=== PATIENT | female | born 1940 | race Caucasian/White ===

== ENCOUNTER 2023-10-22 10:48 | Emergency (ER) | payer MEDICARE, SELFPAY ==
[2023-10-22] VITALS (12 sets, daily range): BP systolic 140–198; BP diastolic 71–90; PULSE 50–68; RESP 7–19; TEMP 36.6; O2SAT 94–97; BMI 22.1
--- NOTE | 2023-10-22 10:55 | EKG_ITS ---
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
--- NOTE | 2023-10-22 11:00 | DI.RAD.S_ITS ---
PROCEDURE: XR CHEST 1V INDICATIONS: chest pain TECHNIQUE: One view of the chest was acquired. COMPARISON: None. FINDINGS: Surgical changes and devices: None. Lungs and pleura: Lungs are clear. No pleural effusions or pneumothorax. Mediastinum: Mediastinal contours appear normal. Heart size is normal. Bones and chest wall: No suspicious bony lesions. Overlying soft tissues appear unremarkable. IMPRESSION: No acute cardiopulmonary abnormality is seen. Dictated by: Patrice Florez M.D. on 10/22/2023 at 11:16 Approved by: Patrice Florez M.D. on 10/22/2023 at 11:16
--- NOTE | 2023-10-22 11:00 | PC.NURSE ---
Provider consulted and gave verbal order for no aspirin.
--- NOTE | 2023-10-22 11:20 | ED_ITS ---
HPI - Dizziness General Chief Complaint: Dizziness Stated Complaint: Dizzy Time Seen by Provider: 10/22/23 11:20 Source: patient and family Mode of arrival: EMS Limitations: no limitations History of Present Illness HPI Narrative: 83-year-old female history of depression, hypothyroidism, dementia, cardiac arrhythmia recently started on anticoagulation who presents with complaint of dizziness. Patient has been drove up to the area from [place] last night, spent the night in [place] patient went for a walk this morning and afterwards had diarrhea for about an hour on and off. Afterwards she developed some dizziness which she trouble describing. She states it is worse with movement of her head. She denies headache, no sudden vision changes, no numbness tingling or weakness. No difficulty with balance or gait. She would some nausea early but no vomiting. She did have some diarrhea like stools 2 or 3 times over about an hour prior to the episode occurring. No bright red stools or melanotic stools. No abdominal, back or flank pain. No dysuria urgency or frequency or incontinence. Denies any new numbness tingling or weakness of extremities patient states she is feeling improved but still slightly present. Hurt her has been notes she was admitted to [facility] recently was started on medication to help keep her heart rate down and anticoagulants they are unsure the name of both these medications or her exact diagnosis but sounds like possibly atrial fibrillation. She has a history of depression hypothyroidism has had her thyroid out. Has taken a statin in the past. No reports of hypertension or diabetes. Has not ever had any surgical interventions besides or thyroid, no prior heart catheterization or cardiac interventions. No known drug allergies. No tobacco, very rare alcohol, no recreational drugs. Patient lives in [place], primary care is through [facility]. She is accompanied by her who augments her history. He does not appreciate any changes to mentation today. Related Data Previous Rx's Medication Instructions Recorded cephalexin 500 mg capsule 500 mg PO TID 5 days #15 caps 10/22/23 Allergies Allergy/AdvReac Type Severity Reaction Status Date / Time No Known Drug Allergies Allergy Verified 10/22/23 14:30 Review of Systems Review of Systems ROS Unobtainable: All systems reviewed & are unremarkable except as noted in HPI and below Patient History Social History Smoking Status: Never smoker Smoking Status: Never smoker Substance Use Type: does not use Exam Narrative Exam Narrative: GEN: well nourished, well appearing female, alert and oriented x 3, patient appears to be in mild distress. HEENT: Atraumatic, pupils are equal round reactive to light, extraocular movements are intact, nares are clear, no nystagmus, TMs are clear with no fluid, there is no conjunctival pallor. Throat is clear without any exudates, erythema, tonsillar enlargement or uvular deviation HEART: Regular rate and rhythm without murmur, clicks, rubs. Pulses are equal in upper and lower extremities LUNGS:Lungs clear to auscultation, no wheezes, rales, crackles, chest moves symmetrically ABD:bowel sounds normal, soft, non-tender, no guarding, rebound, rigidity, no masses noted, no hepatosplenomegaly :No CVA tenderness MSCL: Non-tender, no muscle atrophy, muscles strength 5/5 upper and lower extremities, full range of motion. NEURO:CN 2-12 intact, sensation normal, finger nose finger test normal, heel nicholas test normal, romberg normal SKIN: No rash, erythema or other skin changes noted. Initial Vital Signs Initial Vital Signs: Vital Signs Temperature 97.8 F 10/22/23 10:53 Pulse Rate 51 L 10/22/23 10:53 Respiratory Rate 18 10/22/23 10:53 Blood Pressure 140/78 10/22/23 10:53 Pulse Oximetry 97 10/22/23 10:53 Oxygen Delivery Method Room Air 10/22/23 10:53 Scores NIH Stroke Scale Level of Conciousness: Alert, keenly responsive Ask month/age: Answers both questions correctly. Open/close eyes, close hand: Performs both tasks correctly Best gaze horizontal: Normal Visual richardson: No visual loss Facial palsy: Normal symetrical movement Left arm drift: No drift for full 10 sec Right arm drift: No drift for full 10 sec Left leg drift: No drift for full 5 sec Right leg drift: No drift for full 5 sec Limb ataxia: Absent Sensory on face/arms/legs: Normal, no sensory loss Best language: No aphasia, normal Dysarthria: Normal Extinction or inattention: No abnormality Total NIH Stroke scale score: 0 Course Orders Ordered: Discontinued Medications Cephalexin HCl (Cephalexin 250 Mg Capsule) 500 mg PO NOW ONE Stop: 10/22/23 14:19 Last Admin: 10/22/23 14:31 Dose: 500 mg Documented By: MARGRET Meclizine HCl (Meclizine Hcl 12.5 Mg Tablet) 25 mg PO NOW ONE Stop: 10/22/23 11:43 Last Admin: 10/22/23 11:50 Dose: 25 mg Documented By: IRMA Vital Signs Vital signs: Vital Signs - 8 hr 10/22/23 10:53 10/22/23 10:53 10/22/23 10:54 Temperature 97.8 F Pulse Rate 51 L 51 L 50 L Respiratory Rate 18 Blood Pressure 140/78 Pulse Oximetry 97 96 Oxygen Delivery Method Room Air 10/22/23 10:54 10/22/23 11:00 10/22/23 11:30 Temperature Pulse Rate 50 L 54 L Respiratory Rate 16 Blood Pressure 179/77 H Pulse Oximetry 97 96 Oxygen Delivery Method 10/22/23 11:30 10/22/23 12:30 10/22/23 12:47 Temperature Pulse Rate 57 L 58 L Respiratory Rate 15 14 Blood Pressure 166/73 H Pulse Oximetry 94 96 Oxygen Delivery Method 10/22/23 12:47 10/22/23 13:01 10/22/23 13:32 Temperature Pulse Rate 60 68 Respiratory Rate 19 15 Blood Pressure 153/71 H Pulse Oximetry 94 95 Oxygen Delivery Method 10/22/23 13:32 10/22/23 14:00 10/22/23 14:00 Temperature Pulse Rate 58 L Respiratory Rate 16 Blood Pressure 191/89 H 198/90 H Pulse Oximetry 95 Oxygen Delivery Method MDM - Dizziness Lab Data 10/22/23 11:07 10/22/23 11:07 Labs: Lab Results 10/22/23 10/22/23 Range/Units 11:07 13:35 WBC 9.2 (4.5-11.0) X10^3/uL RBC 3.76 L (4.0-5.2) X10^6/uL Hgb 11.2 L (12.0-16.0) g/dL Hct 34.1 L (36-46) % MCV 90.5 (80-100) fL MCH 29.7 (26-34) PG MCHC 32.8 (30-36) % RDW 15.7 H (11.6-14.8) % Plt Count 244 (150-400) X10^3/uL Neut % (Auto) 80.2 H (50-75) % Lymph % (Auto) 12.7 L (25-40) % [place] % (Auto) 5.5 (3-14) % Eos % (Auto) 0.7 L (2-4) % Baso % (Auto) 0.9 (0-2) % Neut # (Auto) 7300 H (7260-1485) /uL Lymph # (Auto) 1200 (2403-9965) /uL [place] # (Auto) 500 (0-900) /uL Eos # (Auto) 100 (0-450) /uL Baso # (Auto) 100 (0-100) /uL PT 11.5 (9.4-12.5) SECONDS INR 1.0 (0.9-1.3) APTT 31 (25.1-36.5) SECONDS Sodium 138 (137-145) mmol/L Potassium 4.1 (3.4-5.1) mmol/L Chloride 104 (98-107) mmol/L Carbon Dioxide 29 (22-32) mmol/L BUN 19 H (7-17) mg/dL Creatinine 1.00 (0.52-1.04) mg/dL Estimated GFR 57 L (>60) mL/min BUN/Creatinine Ratio 19.0 (6-22) Glucose 126 H (80-110) mg/dL Calcium 8.7 (8.4-10.2) mg/dL Magnesium 2.0 (1.6-2.3) mg/dL Total Bilirubin 0.8 (0.2-1.3) mg/dL AST 30 (14-36) IU/L ALT 19 (<35) IU/L Alkaline Phosphatase 74 (38-126) U/L Total Creatine Kinase 65 (30-135) U/L Troponin I < 0.012 (0.01-0.034) ng/mL NT-Pro-B Natriuret Pep 2050 H (<450) pg/mL Total Protein 7.1 (6.3-8.2) g/dL Albumin 4.0 (3.5-5.0) g/dL Globulin 3.1 (1.7-4.1) g/dL Albumin/Globulin Ratio 1.3 (1.0-2.8) Lipase 123 (23-300) U/L Urine Color Yellow Urine Appearance Sl cloudy Urine pH 6.5 (4.5-8.0) Ur Specific [place] 1.010 (1.000-1.035) Urine Protein Negative (Negative) Urine Glucose (UA) Negative (Negative) g/dL Urine Ketones Trace H (NEGATIVE) Urine Occult Blood 1+ H (Negative) Urine Nitrate Negative (Negative) Urine Bilirubin Negative (NEGATIVE) Urine Urobilinogen 0.2 (0.2) E.U./dL Ur Leukocyte Esterase 2+ H (NEGATIVE) Urine RBC 0-1/hpf (0-5/HPF) Urine WBC 5-10/hpf H (0-5/HPF) Ur Squamous Epith Cells 1-5 /hpf (0-5/HPF) Ur Transition Epith Cell 0-1/hpf (0-5/HPF) Urine Bacteria Few (2-10) H (None) Ur Culture Indicated? Specimen cultured Vol Urine Centrifuged Low vol <10ml (spun) A Imaging Data Chest x-ray: Radiologist's Impression: [place] [address] XRay Report Signed Patient: Coreen Baird MR#: [id number] : 1940 Acct:[id number] Age/Sex: 83 / F Date of Service: 10/22/23 Loc: ED Accession Number: [id number] Procedure: XR chest 1V Ordering Provider: Kim Farr D.O. PROCEDURE: XR CHEST 1V INDICATIONS: chest pain TECHNIQUE: One view of the chest was acquired. COMPARISON: None. FINDINGS: Surgical changes and devices: None. Lungs and pleura: Lungs are clear. No pleural effusions or pneumothorax. Mediastinum: Mediastinal contours appear normal. Heart size is normal. Bones and chest wall: No suspicious bony lesions. Overlying soft tissues appear unremarkable. IMPRESSION: No acute cardiopulmonary abnormality is seen. Dictated by: Patrice Florez M.D. on 10/22/2023 at 11:16 Approved by: Patrice Florez M.D. on 10/22/2023 at 11:16 ECG Data Attestation: I personally reviewed and interpreted this ECG as follows: Prior ECG tracings: not available for review Interpretation: Sinus [place] rate of 51 NC 158 QRS is 78 QTC of 451, no acute ST elevation depression noted. No priors for comparison. MDM Narrative Medical decision making narrative: 83-year-old female describing dizziness, maybe vertigo, patient has little bit difficulty giving history and exact symptoms but no other acute neurologic changes appreciated fairly abrupt onset but did occur after an episode of diarrhea 2 or 3 times the hour prior. Patient is bradycardic but no hypotension, afebrile. She is otherwise well-appearing, NIH is 0. Head CT shows no acute change. CT angio shows no significant intracranial arterial abnormality proximate 70% stenosis left proximal ICA right vertebral artery is dominant left vertebral artery is small right vertebral artery forms basilar, left vertebral artery terminates in the left PICA. Large left thyroid nodule recommended not urgent dedicated thyroid ultrasound for follow-up. Chest x-ray shows no acute change Labs, white count of 9.2 hemoglobin 11.2 platelets of 244. INR is 1, sodium is 138 potassium 4.1 chloride 104 CO2 of 29 BUN 19 creatinine 1, glucose is 126 calcium is 8.7 Mag is 2, LFTs are negative, troponins less than 0.012 BNP is 2050 no priors for comparison. EKG shows sinus bradycardia Urine shows trace ketones 1+ blood, 2+ leuks, 1 red cell 5-10 white cells 1-5 squamous few bacteria was sent for culture. Seems most consistent with UTI. Patient was given meclizine. Recheck reviewed findings with the patient's family has been notes that she had what sounds like a CT angio in the last several months while having her dementia workup. They are unsure if there was any stenosis. She has been on a statin also has a little bit of a UTI symptoms could be consistent with this as well. Discussed risks versus benefits of obtaining MR patient is ambulating in the department with no other acute changes or symptoms have resolved. Family defers MR. Discussed need for follow up regarding her CT angio, we will start oral antibiotic. Discharge Plan Departure Patient Disposition: Home Clinical Impression: Dizziness, UTI (urinary tract infection) Activity Restrictions/Additional Instructions: Your workup today did show possible UTI, urine cultures pending and if it shows resistance to antibiotics you would be contacted to change your prescription. Culture takes proximally 48-72 hours to result if you are on the appropriate antibiotics you will not be contacted. We did discuss vertigo as being possiblyone1 of the sources of your symptoms today, your non-con head CT was negative but CT head and neck angio does show some blockage of the left proximal ICA, follow up with your physician regarding this is they may wish to make sure you are taking a statin daily or adjust your medications. Sometimes they will discuss interventions if necessary. It is also noted that you have a large left thyroid lobe nodule, talk with your physician if they are unaware of this you may need to follow up with a thyroid ultrasound. Take oral antibiotics until completed, take 1 tablet 3 times daily or every 8 hours x5 days. Prescription was sent to [facility] pharmacy [address] [place] [address] in [place]. Please return for fevers, new dizziness or passing out, vertigo or room spinning, persistent vomiting, black or bloody stools, new abdominal back or flank pain, difficulty with urination, new numbness tingling or weakness or other new or concerning changes. Prescriptions: New cephalexin 500 mg capsule 500 mg PO TID 5 Days Qty: 15 0RF Stand Alone Forms: Patient Portal/API
[2023-10-22 11:22] LABS: Prothrombin Time 11.5 SECONDS (9.4-12.5)
[2023-10-22 11:24] LABS: Add Manual Diff / Slide Review NO; Basophils Absolute Auto 100 /uL (0-100); Basophils Percent Auto 0.9 % (0-2); Eosinophils Absolute Auto 100 /uL (0-450); Eosinophils Percent Auto 0.7 % (2-4); Hematocrit 34.1 % (36-46); Hemoglobin 11.2 g/dL (12.0-16.0); Lymphocytes Absolute Auto 1200 /uL (1100-4500); Lymphocytes Percent Auto 12.7 % (25-40); Mean Corpuscular HGB Conc 32.8 % (30-36); Mean Corpuscular Hemoglobin 29.7 PG (26-34); Mean Corpuscular Volume 90.5 fL (80-100); Monocytes Absolute Auto 500 /uL (0-900); Monocytes Percent Auto 5.5 % (3-14); Neutrophils Absolute Auto 7300 /uL (1500-7000); Neutrophils Percent Auto 80.2 % (50-75); PTT Partial Thromboplastin Tim 31 SECONDS (25.1-36.5); Platelet Count 244 X10^3/uL (150-400); Red Blood Cell Count 3.76 X10^6/uL (4.0-5.2); Red Cell Distribution Width 15.7 % (11.6-14.8); White Blood Cell Count 9.2 X10^3/uL (4.5-11.0)
[2023-10-22 11:27] LABS: Alanine Aminotransferase 19 IU/L (<35); Albumin Globulin Ratio 1.3 (1.0-2.8); Alkaline Phosphatase 74 U/L (38-126); Aspartate Aminotransferase 30 IU/L (14-36); Bilirubin Total 0.8 mg/dL (0.2-1.3); Blood Urea Nitrogen 19 mg/dL (7-17); Calcium 8.7 mg/dL (8.4-10.2); Carbon Dioxide 29 mmol/L (22-32); Chloride 104 mmol/L (98-107); Creatine Kinase 65 U/L (30-135); Estimated Glomerular Filt Rate 57 mL/min (>60); Globulin 3.1 g/dL (1.7-4.1); Glucose 126 mg/dL (80-110); HEMOLYSIS < 15 (0-50); Lipase 123 U/L (23-300); Potassium 4.1 mmol/L (3.4-5.1); Sodium 138 mmol/L (137-145); Total Protein 7.1 g/dL (6.3-8.2)
[2023-10-22 11:39] LABS: NT-proBNP (BNP-Adult 18+) 2050 pg/mL (<450); Troponin I < 0.012 ng/mL (0.01-0.034)
--- NOTE | 2023-10-22 11:41 | DI.CT.S_ITS ---
PROCEDURE: CT ANGIO HEAD AND NECK INDICATIONS: vertigo/ TECHNIQUE: After the administration of intravenous contrast, 1 mm thick sections acquired from the aortic arch through the [place] of [place]. 3-dimensional lohmrxf-wkquvzqob-wbbsoqnrkg (MIP) and/or volume rendering reformats were acquired of the central intracranial vasculature and neck separately. For radiation dose reduction, the following was used: automated exposure control, adjustment of mA and/or kV according to patient size. COMPARISON: None. FINDINGS: Image quality: Diagnostic. BRAIN: Please refer to same day CT of the head. HEAD CT ANGIOGRAPHY: Anterior circulation: Intracranial internal carotid arteries are normal in size and flow with atherosclerotic calcifications. The flow within the paired anterior cerebral arteries is normal and symmetric. The flow within the middle cerebral arteries is normal and symmetric. The anterior communicating artery is seen. No aneurysms are seen. Posterior circulation: Visualized portions of the vertebral arteries demonstrate normal caliber, and join to form a normal appearing basilar artery. Flow within the posterior cerebral arteries is normal and symmetric. No aneurysms are seen. NECK CT ANGIOGRAPHY: Carotid system: The great vessels demonstrate a conventional anatomy as they arise from the aortic arch. The origins of the common carotid arteries appear patent. The common carotid arteries demonstrate normal caliber and courses. The bifurcation regions demonstrate atherosclerotic calcifications with approximately 70 percent stenosis on the left and no significant stenosis on the right of the proximal ICA. The internal carotid arteries otherwise demonstrate normal calibers and courses. Posterior circulation: The origins of the vertebral arteries both appear widely patent. The more superior extracranial portions of both vertebral arteries also demonstrate normal courses and calibers. Right vertebral artery forms the basilar artery. Left vertebral artery terminates into the PICA.. Soft tissues: Visualized neck soft tissues demonstrate no suspicious abnormalities. Large left thyroid lobe with nodules, measuring up to 3.2 centimeters. Bones: No suspicious bony lesions. Visualized cervical spine appears normally aligned. IMPRESSION: No significant intracranial arterial abnormality is seen. 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 Right vertebral artery is dominant, left vertebral artery is small. Right vertebral artery forms the basilar, left vertebral artery terminates into the left PICA Large left thyroid lobe nodules, recommend nonurgent dedicated thyroid ultrasound for further evaluation. Any quantitative measurements of stenosis were performed using NASCET criteria. Dictated by: Patrice Florez M.D. on 10/22/2023 at 12:53 Approved by: Patrice Florez M.D. on 10/22/2023 at 12:58
--- NOTE | 2023-10-22 11:41 | DI.CT.S_ITS ---
PROCEDURE: CT HEAD/BRAIN WO CON INDICATIONS: vertigo/ TECHNIQUE: Noncontrast 4.5 mm thick angled axial sections acquired from the foramen magnum to the vertex, with coronal and sagittal reformats. For radiation dose reduction, the following was used: automated exposure control, adjustment of mA and/or kV according to patient size. COMPARISON: None. FINDINGS: Image quality: Diagnostic. CSF spaces: Basal cisterns are patent. No extra-axial fluid collections. The ventricles are symmetric in size and shape. Brain: No intracranial bleeds or masses. There is cerebral volume loss for age, with resultant ventricular and sulcal prominence. There are periventricular and deep white matter chronic small vessel ischemic changes. There is intracranial internal carotid artery atherosclerosis. Skull and face: Calvarium and visualized facial bones appear intact, without suspicious lesions. Sinuses: Visualized sinuses and mastoids are clear. IMPRESSION: No acute intracranial pathology. Dictated by: Patrice Florez M.D. on 10/22/2023 at 12:52 Approved by: Patrice Florez M.D. on 10/22/2023 at 12:52
[2023-10-22] MEDS: MECLIZINE HCL 12.5 MG TABLET 25 MG PO (11:50)
[2023-10-22 13:44] LABS: Bilirubin Urine UA NEGATIVE (NEGATIVE); Color Urine UA YELLOW; Glucose Urine UA NEGATIVE (Negative); Ketones Urine UA TRACE (NEGATIVE); Leukocyte Esterase Urine UA 2+ (NEGATIVE); Nitrite Urine UA NEGATIVE (Negative); Occult Blood Urine UA 1+ (Negative); Protein Urine UA NEGATIVE (Negative); Urobilinogen Urine UA 0.2 E.U./dL (0.2)
[2023-10-22 13:49] LABS: Appearance Urine UA SL CLOUDY; pH Urine UA 6.5 (4.5-8.0)
[2023-10-22 13:50] LABS: Urine Volume Low Vol <10mL (spun)
[2023-10-22 13:52] LABS: Bacteria Urine Few (2-10); Culture Indicated Urine Specimen Cultured; RBC Urine 0-1/HPF (0-5/HPF); Squamous Epithelial Cell Urine 1-5 /HPF (0-5/HPF); Transitional Epi Cells Urine 0-1/HPF (0-5/HPF); WBC Urine 5-10/HPF (0-5/HPF)
[2023-10-22] MEDS: cephALEXin 250 MG CAPSULE 500 MG PO (14:31)
== END 2023-10-22 14:44 | disposition home or self-care (01) ==
PROVIDERS: Emergency Provider Emergency Medicine
DX: R42 Dizziness and giddiness (principal); R07.9 Chest pain, unspecified; N39.0 Urinary tract infection, site not specified; R79.89 Other specified abnormal findings of blood chemistry; F03.90 Unspecified dementia, unspecified severity, without behavioral disturbance, psychotic disturbance, mood disturbance, and anxiety
CPT/HCPCS: 36415; 70450; 70496; 70498; 71045; 80053; 81001; 82550; 83690; 83735; 83880; 84484; 85025; 85610; 85730; 87086; 93005; 99284; Q9967